=== PATIENT | female | born 1990 | race Caucasian/White ===

== ENCOUNTER 2023-06-11 06:21 | Outpatient (CLI) | payer SELFPAY ==
[2023-06-11 07:40] LABS: Source Nasal/Nares
[2023-06-11 08:17] LABS: COVID-19 PCR Negative (Negative)
== END 2023-06-11 06:22 | disposition home or self-care (01) ==
PROVIDERS: Family Medicine
DX: Z20.822 Contact with and (suspected) exposure to COVID-19 (principal); R09.81 Nasal congestion
CPT/HCPCS: 87635